=== PATIENT | female | born 1930 | race Asian ===

== ENCOUNTER 2016-12-25 18:32 | Inpatient (IN) | payer OTHER, MEDICARE ==
[~2016-12-25] VITALS: Ht 154.9 cm; Wt 47.2 kg
[~2016-12-25 18:32] MED LIST: ACET-9525 PO; AMYL-40 PO; POLY17PD65 PO; SIMV20TA1 PO
[2016-12-25 18:36] VITALS: BP 145/79
--- NOTE | 2016-12-25 19:14 | NUR ---
PT BIBA TO BED 8 AT THIS TIME.
--- NOTE | 2016-12-25 19:36 | NUR ---
86Y F BIBA C/O SUDDEN GENERALIZED WEAKNESS X 2HRS---NO FACIAL ASYMMETRY NOTED, TONGUE MIDLINE, EQUAL BUE PUSHES/PULLS. PT FAMILY IS AT BEDSIDE, STATES SHE HAS STAGE 4 COLON CANCER; TAKING XELODA FOR CHEMOTHERAPY X 3 WEEKS; PT HAS OSTOMY IN THE GI ; HX---STAGE 4 COLON CA, COLONSTOMY, HTN
--- NOTE | 2016-12-25 21:35 | NUR ---
Dr. Shea evaluating patient at bedside.
[2016-12-25] MEDS ORDERED: NACL 0.9% 1,000 ML IV ONE (21:40)
[2016-12-25 21:53] LABS: APPEARANCE,URINE CLEAR (CLEAR); BILIRUBIN,URINE NEGATIVE (NEGATIVE); BLOOD, URINE TRACE-L (NEGATIVE); COLOR,URINE YELLOW (YELLOW); LEUKOCYTE ESTERASE ,URINE NEGATIVE (NEGATIVE); NITRITE, URINE NEGATIVE (NEGATIVE); PROTEIN,URINE NEGATIVE (NEGATIVE); UGLUCOSE NEGATIVE (NEGATIVE); UROBILINOGEN,URINE 0.2 EU/dL (0.2 - 1)
[2016-12-25 21:57] LABS: BACTERIA,URINE RARE /HPF (None Seen); RBC,URINE 0-3 /HPF (0-5); WBC,URINE 0-3 /HPF (0-5)
[2016-12-25 21:58] LABS: SQUAMOUS EPITHELIAL CELL,UR 0-3 /LPF (0-3 (FEW))
[2016-12-25 22:05] LABS: BASOPHILS # (AUTO) 0.2 K/uL (0.00-0.22); HEMOGLOBIN 11.8 g/dL (12.0-16.0); MEAN CORPUSCULAR VOLUME 89 fL (80-94)
[2016-12-25 22:08] LABS: EOSINOPHILS # (AUTO) 0.3 K/uL (0-0.4); EOSINOPHILS % (AUTO) 1.7 % (0.0-4.0); HEMATOCRIT 36.2 % (36-48); LYMPHOCYTES % (AUTO) 11.1 % (20.5-51.1); MEAN CORPUSCULAR HEMOGLOBIN 29 pg (27-31); MEAN CORPUSCULAR HGB CONC 33 g/dL (33-37); MONOCYTES # (AUTO) 1.3 K/uL (0.8-1.0); NEUTROPHILS # (AUTO) 14.1 K/uL (1.8-7.7); NEUTROPHILS % (AUTO) 79.2 % (42.2-75.2); PLATELET COUNT (AUTO) 286 K/uL (140-450); RED BLOOD CELL COUNT(AUTO) 4.06 MIL/uL (4.20-5.40); RED CELL DISTRIBUTION WIDTH 22.2 % (11.6-13.7); WHITE BLOOD COUNT (AUTO) 17.9 K/uL (4.8-10.8)
[2016-12-25 22:22] LABS: ALANINE AMINOTRANSFERASE 23 U/L (14-59); ALBUMIN 1.6 g/dL (3.4-5.0); ALKALINE PHOSPHATASE 477 U/L (46-116); ANION GAP 11.9 (8-16); ASPARTATE AMINOTRANSFERASE 76 U/L (15-37); CALCIUM 8.4 mg/dL (8.5-10.1); CARBON DIOXIDE 22.6 mmol/L (21-32); CHLORIDE 104 mmol/L (98-107); CREATININE 1.1 mg/dL (0.6-1.3); GLUCOSE 154 mg/dL (74-106); POTASSIUM 4.5 mmol/L (3.5-5.1); SODIUM SERUM 134 mmol/L (136-145); TOTAL BILIRUBIN 0.8 mg/dL (0.0-1.0); TOTAL PROTEIN, SERUM 8.7 g/dL (6.4-8.2); UREA NITROGEN, BLOOD 12 mg/dL (7-18)
--- NOTE | 2016-12-25 22:47 | NUR ---
Patient will be admitted to care of [facility]. Admited to MS 110B. Will go to room 110B . Belongings list completed. Report to MILTON TRAMMELL .
[2016-12-25] MEDS ORDERED: CAPE500T1 PO (22:54)
[2016-12-25] MEDS: DEXT 5% / NACL 0.45% 1,000 ML IV SCH (23:29)
[2016-12-25] MEDS ORDERED: HYDROcodone/APAP 5/325 MG 1 TAB TAB PO PRN ×2 (23:30)
[2016-12-25] MEDS ORDERED: ONDANSETRON 4 MG/2 ML VIAL IVP PRN (23:30)
[2016-12-25] MEDS ORDERED: LORazepam 2 MG/ML VIAL IVP PRN (23:30)
--- NOTE | 2016-12-26 00:10 | NUR ---
RECEIVED PATIENT FROM ER VIA GURNEY, ACCOMPANIED BY GRANDDAUGHTER. IS AOX4, [place] SPEAKING, ABLE TO VERBALIZE FEELINGS. NO S/S OF DISTRESS. NO COMPLAINTS OF PAIN. WITH AN IV AT THE RIGHT HAND, PATENT AND INTACT. WITH A COLOSTOMY BAG, INTACT. SKIN IS INTACT. PATIENT NOTED WITH GENERALIZED WEAKNESS. ABDOMEN IS ROUND, TENDER UPON PALPATION. INITIAL ASSESSMENT DONE. ORIENTED PATIENT AND GRANDDAUGHTER TO THE UNIT, VERBALIZED UNDERSTANDING. WILL CONTINUE TO MONITOR. ALL NEEDS ATTENDED. CALL LIGHT WITHIN REACH. SAFETY CHECKS IN PLACE.
[2016-12-26 00:13] VITALS: BP 140/70
--- NOTE | 2016-12-26 01:15 | NUR ---
PLACED SEQUENTIALS ON THE PATIENT. STARTED IV FLUIDS, INTACT AND PATENT. WILL CONTINUE TO MONITOR.
--- NOTE | 2016-12-26 01:30 | NUR ---
PATIENT'S IV SITE IS NOTED TO HAVE SOME BACK FLOW. TRIED FLUSHING WITH NORMAL SALINE, BUT COULD NOT FLUSH. REINSERTED A 22 G ON THE LEFT WRIST. WILL CONTINUE TO MONITOR. ALL NEEDS ATTENDED. CALL LIGHT WITHIN REACH.
--- NOTE | 2016-12-26 03:20 | NUR ---
MADE ROUNDS, PATIENT ASLEEP. NO S/S OF DISTRESS. WILL CONTINUE TO MONITOR.
[2016-12-26 05:26] LABS: BASOPHILS # (AUTO) 0.2 K/uL (0.00-0.22); BASOPHILS % (AUTO) 1.5 % (0.0-2.0); EOSINOPHILS # (AUTO) 0.3 K/uL (0-0.4); EOSINOPHILS % (AUTO) 1.7 % (0.0-4.0); HEMOGLOBIN 10.8 g/dL (12.0-16.0); LYMPHOCYTES # (AUTO) 2.1 K/uL (2.5-16.5); LYMPHOCYTES % (AUTO) 13.2 % (20.5-51.1); MEAN CORPUSCULAR HEMOGLOBIN 29 pg (27-31); MEAN CORPUSCULAR HGB CONC 33 g/dL (33-37); MEAN CORPUSCULAR VOLUME 90 fL (80-94); MONOCYTES # (AUTO) 0.9 K/uL (0.8-1.0); MONOCYTES % (AUTO) 5.6 % (1.7-9.3); NEUTROPHILS # (AUTO) 12.7 K/uL (1.8-7.7); PLATELET COUNT (AUTO) 258 K/uL (140-450); RED BLOOD CELL COUNT(AUTO) 3.69 MIL/uL (4.20-5.40); RED CELL DISTRIBUTION WIDTH 22.8 % (11.6-13.7)
[2016-12-26 06:00] LABS: ALANINE AMINOTRANSFERASE 19 U/L (14-59); ALBUMIN 1.5 g/dL (3.4-5.0); ALKALINE PHOSPHATASE 437 U/L (46-116); ASPARTATE AMINOTRANSFERASE 69 U/L (15-37); CALCIUM 8.4 mg/dL (8.5-10.1); CARBON DIOXIDE 20.7 mmol/L (21-32); CHLORIDE 105 mmol/L (98-107); CREATININE 0.7 mg/dL (0.6-1.3); GLUCOSE 164 mg/dL (74-106); MAGNESIUM 1.9 mg/dL (1.8-2.4); POTASSIUM 3.7 mmol/L (3.5-5.1); SODIUM SERUM 135 mmol/L (136-145); TOTAL BILIRUBIN 0.7 mg/dL (0.0-1.0); TOTAL PROTEIN, SERUM 8.3 g/dL (6.4-8.2); UREA NITROGEN, BLOOD 10 mg/dL (7-18)
--- NOTE | 2016-12-26 06:34 | NUR ---
PATIENT AWAKE. NO S/S OF DISTRESS. NO COMPLAINTS OF PAIN. WILL CONTINUE TO MONITOR. ALL NEEDS ATTENDED. CALL LIGHT WITHIN REACH. SAFETY CHECKS IN PLACE.
[2016-12-26 06:38] LABS: WHITE BLOOD COUNT (AUTO) 16.2 K/uL (4.8-10.8)
--- NOTE | 2016-12-26 07:15 | NUR ---
ENDORSED TO AM SHIFT NURSE FOR CONTINUITY OF CARE, IN STABLE CONDITION.
--- NOTE | 2016-12-26 07:16 | NUR ---
RECEIVED REPORT FROM THE HANGERSMITH NURSE AT BEDSIDE FOR CONTINUITY OF CARE. PT IS AWAKE. JUSTICE COURT JUDGE WITH HER W/ A BEDPAN. WILL COME BACK TO ASSESS PT.
--- NOTE | 2016-12-26 07:45 | NUR ---
PT IS AWAKE AND ORIENTED, CITIZEN OF [place] SPEAKING. INTRODUCED MYSELF AND UPDATED THE BOARD. PT IS EATING BREAKFAST. V/S IS WNL. SKIN INTACT, LOOSE. PT HAS A COLOSTOMY BAG. IV ON R WRIST 22G D5 1/2 NS INFUSING AT 75ML. DENIES PAIN. NO COMPLAINTS AT THIS TIME. WILL CONTINUE TO MONITOR PT.
[2016-12-26 08:00] VITALS: BP 146/73
[2016-12-26] MEDS: ENOXAPARIN 30 MG/0.3 ML SYR SUBQ SCH (08:54)
--- NOTE | 2016-12-26 08:56 | NUR ---
ADMINISTERED MORNING MEDS. PT TOLERATED WELL. WILL CONTINUE TO MONITOR PT. PT'S FAMILY AT BEDSIDE.
--- NOTE | 2016-12-26 09:37 | NUR ---
CM NOTE INITIAL REVIEW FAXED TO [facility] [phone] PH CASTRO [phone] OCTOBER [phone]
--- NOTE | 2016-12-26 11:18 | NUR ---
PATIENT HAS BEEN SCREENED AND CATEGORIZED HIGH NUTRITION RISK. PATIENT WILL BE SEEN WITHIN 1-2 DAYS OF ADMISSION. 12/26/16-12/27/[address]
--- NOTE | 2016-12-26 11:20 | NUR ---
IV SITE LEAKING. WILL NEED TO RESTART IV. WILL ASSESS.
--- NOTE | 2016-12-26 12:50 | NUR ---
PT NEEDED TO GO TO THE BATHROOM. PLACED BED BOJORQUEZ. PT HAD A LIQUIDY BM AND URINATED. EMPTIED THE COLOSTOMY BAG. PT TOLERATED WELL.
--- NOTE | 2016-12-26 14:10 | NUR ---
STARTED A NEW IV ON R WRIST 22G. PT TOLERATED WELL. D/C'D THE L HAND IV. NO BLEEDING NOTED. CANNULA INTACT.
--- NOTE | 2016-12-26 14:36 | NUR ---
12/26/16 RD INITIAL ASSESSMENT COMPLETED PLEASE REFER TO NUTRITION ASSESSMENT UNDER CARE ACTIVITY FOR ESTIMATED NUTRITIONAL NEEDS. 1. CONTINUE MECHANICAL SOFT DIET 2. CONSIDER HEALTHSHAKE TID 3. RD TO FOLLOW UP WITHIN 2-3 DAYS; HIGH RISK RENEE FLEMING RD
[2016-12-26] MEDS: DEXT 5% / NACL 0.45% 1,000 ML IV SCH (15:01)
[2016-12-26 15:05] LABS: ALANINE AMINOTRANSFERASE 21 U/L (14-59); ALBUMIN 1.5 g/dL (3.4-5.0); ALKALINE PHOSPHATASE 447 U/L (46-116); ANION GAP 11.4 (8-16); ASPARTATE AMINOTRANSFERASE 71 U/L (15-37); CALCIUM 8.6 mg/dL (8.5-10.1); CARBON DIOXIDE 22.6 mmol/L (21-32); CHLORIDE 105 mmol/L (98-107); CREATININE 0.7 mg/dL (0.6-1.3); GLUCOSE 115 mg/dL (74-106); SODIUM SERUM 135 mmol/L (136-145); TOTAL BILIRUBIN 0.7 mg/dL (0.0-1.0); TOTAL PROTEIN, SERUM 8.7 g/dL (6.4-8.2); UREA NITROGEN, BLOOD 9 mg/dL (7-18)
[2016-12-26 16:00] VITALS: BP 146/76
--- NOTE | 2016-12-26 17:05 | NUR ---
PT SLEEPING. NO SIGNS OF DISTRESS. FAMILY MEMBER AT BEDSIDE. WILL CONTINUE TO MONITOR PT.
--- NOTE | 2016-12-26 19:10 | NUR ---
ENDORSED PT TO THE QUALITY CONTROL OPERATOR NURSE AT BEDSIDE FOR CONTINUITY OF CARE. PT IS IN STABLE CONDITION. FAMILY AT BEDSIDE.
--- NOTE | 2016-12-26 19:11 | NUR ---
RECEIVED REPORT FROM AM NURSE. PT IS AOX4, [place]AK[place] SPEAKING, ABLE TO MAKE NEEDS KNOWN. NO S/S OF DISTRESS. NO COMPLAINTS OF PAIN AT THIS TIME. WITH FAMILY AT BEDSIDE. WITH AN IV TO THE RIGHT WRIST 22 G, INTACT AND PATENT. SKIN IS INTACT, BUT HAS A COLOSTOMY BAG. INITIAL ASSESSMENT DONE. REORIENTED PATIENT AND FAMILY TO THE UNIT, VERBALIZED UNDERSTANDING. WILL CONTINUE TO MONITOR. CALL LIGHT WITHIN REACH. SAFETY CHECKS IN PLACE.
--- NOTE | 2016-12-26 21:57 | NUR ---
MADE ROUNDS, PATIENT ASLEEP. NO S/S OF DISTRESS. NO COMPLAINTS OF PAIN. WILL CONTINUE TO MONITOR. CALL LIGHT WITHIN REACH. SAFETY CHECKS IN PLACE.
[2016-12-27] VITALS: BP 144/68
--- NOTE | 2016-12-27 | NUR ---
VITAL SIGNS STABLE, NO S/S OF DISTRESS. NO COMPLAINTS OF PAIN. WILL CONTINUE TO MONITOR. ALL NEEDS ATTENDED. CALL LIGHT WITHIN REACH. SAFETY CHECKS IN PLACE.
--- NOTE | 2016-12-27 02:00 | NUR ---
MADE ROUNDS, PATIENT ASLEEP. NO S/S OF DISTRESS. WILL CONTINUE TO MONITOR.
[2016-12-27] MEDS: DEXT 5% / NACL 0.45% 1,000 ML IV SCH ×2 (02:13→15:31)
--- NOTE | 2016-12-27 04:15 | NUR ---
MADE ROUNDS, PATIENT ASLEEP, NO S/S OF DISTRESS. WILL CONTINUE TO MONITOR.
[2016-12-27 06:49] LABS: HEMATOCRIT 33.8 % (36-48); HEMOGLOBIN 11.1 g/dL (12.0-16.0); MEAN CORPUSCULAR HEMOGLOBIN 29 pg (27-31); MEAN CORPUSCULAR HGB CONC 33 g/dL (33-37); MEAN CORPUSCULAR VOLUME 90 fL (80-94); PLATELET COUNT (AUTO) 223 K/uL (140-450); RED BLOOD CELL COUNT(AUTO) 3.77 MIL/uL (4.20-5.40); RED CELL DISTRIBUTION WIDTH 22.2 % (11.6-13.7)
--- NOTE | 2016-12-27 07:21 | NUR ---
RECEIVED REPORT FROM NIGHT NURSE, PT IS AAOX4 [place]YR[place] SPEAKER, ON ROOM AIR, IV TO RIGHT WRIST 22G INFUSING WELL, COLOSTOMY BAG IN PLACE, SCD'S NOTED, ALL SAFETY PRECAUTIONS MET, INITIAL ASSESSMENT COMPLETED, REVIEWED PLAN OF CARE WITH PT, PT NODS HEAD TO VERBALIZED UNDERSTANDING. CALL LIGHT WITHIN REACH. WILL CONTINUE TO MONITOR.
--- NOTE | 2016-12-27 07:21 | NUR ---
ENDORSED TO AM SHIFT NURSE FOR CONTINUITY OF CARE, IN STABLE CONDITION.
--- NOTE | 2016-12-27 07:25 | NUR ---
WAS NOTIFIED BY THE VIBRATORY PILE DRIVER THAT THE PATIENT HAD BLOOD IN THE URINE. WENT TO CHECK MYSELF. TOLD AM SHIFT NURSE AND DR. CASANOVA WAS MADE KNOWN. MADE AN ORDER TO SEND THE URINE FOR URINALYSIS. NOTED.
[2016-12-27 07:27] LABS: BAND % (MANUAL) 3 % (0-8); BASOPHILS % (MANUAL) 1 % (0-2); EOSINOPHILS % (MANUAL) 3 % (0-4); LYMPHOCYTES % (MANUAL) 15 % (20-46); MONOCYTES % (MANUAL) 10 % (5-12); NEUTROPHILS % (MANUAL) 68 (43-65); PLATELET ESTIMATE ADEQUATE
[2016-12-27 07:28] LABS: ANISOCYTOSIS 1+; TARGET CELLS 1+
[2016-12-27 07:29] LABS: POLYCHROMASIA 1+
[2016-12-27 08:00] VITALS: BP 124/66
[2016-12-27] MEDS: ENOXAPARIN 30 MG/0.3 ML SYR SUBQ SCH (08:49)
--- NOTE | 2016-12-27 08:49 | NUR ---
DUE MEDICATION GIVEN, NO S/S OF DISTRESS NOTED, DAUGHTER THONG AT BED SIDE, ALL SAFETY PRECAOUTIONS MET, CALL LIGHT WITHIN REACH. WILL CONTINUE TO MONITOR.
--- NOTE | 2016-12-27 11:04 | NUR ---
COLOSTOMY BAG CHANGED, PT TOLERATED WELL, NO S/S OF DISTRESS NOTED, ALL NEEDS MET, ALL SAFETY PRECAUTIONS MET, WILL CONTINUE TO MONITOR. SON AT BEDSIDE.
[2016-12-27 11:49] LABS: APPEARANCE,URINE CLEAR (CLEAR); BILIRUBIN,URINE NEGATIVE (NEGATIVE); BLOOD, URINE TRACE-I (NEGATIVE); COLOR,URINE YELLOW (YELLOW); LEUKOCYTE ESTERASE ,URINE NEGATIVE (NEGATIVE); NITRITE, URINE NEGATIVE (NEGATIVE); PROTEIN,URINE TRACE (NEGATIVE); UGLUCOSE NEGATIVE (NEGATIVE); UROBILINOGEN,URINE 0.2 EU/dL (0.2 - 1)
[2016-12-27 12:11] LABS: BACTERIA,URINE 0-2 (RARE) /HPF (None Seen); RBC,URINE 0-5 (RARE) /HPF (0-5); SQUAMOUS EPITHELIAL CELL,UR 0-3 (FEW) /LPF (0-3 (FEW)); WBC,URINE 0-5 (RARE) /HPF (0-5)
--- NOTE | 2016-12-27 13:28 | NUR ---
CHECKED IN ON PT, PT CURRENTLY SLEEPING AWAKENS TO NAME, SON AT BEDSIDE. ALL SAFETY PRECAUTIONS MET. CALL LIGHT WITHIN REACH. WILL CONTINUE TO MONITOR.
--- NOTE | 2016-12-27 15:26 | NUR ---
PT CURRENTLY RESTING IN BED, ASSISTED PT TO BEDPAN, NO S/S OF DISTRESS NOTED. ALL NEEDS MET. CALL LIGHT WITHIN REACH, WILL CONTINUE TO MONITOR.
[2016-12-27 16:00] VITALS: BP 143/80
--- NOTE | 2016-12-27 17:45 | NUR ---
PT CURRENTLY SLEEPING AWAKENS TO NAME, NO S/S OF DISTRESS NOTED, SON AT BEDSIDE. CALL LIGHT WITHIN REACH. WILL CONTINUE TO MONITOR.
--- NOTE | 2016-12-27 19:18 | NUR ---
ENDORSED PLAN OF CARE TO NIGHT NURSE, PT IN STABLE CONDITION, NO S/S OF DISTRESS NOTED, FAMILY AT BEDSIDE.
--- NOTE | 2016-12-27 19:20 | NUR ---
RECEIVED PT FROM AM NURSE, PT IN STABLE CONDITION, A&0 X4. FAMILY AT BEDSIDE. IV ON RIGHT WRIST 22G INFUSING FLUIDS AT 75ML/HR . ON ROOM AIR, COLOSTOMY BAG IN PLACE. PLAN OF CARE DISCUSSED WITH PATIENT AND FAMILY, BOTH VERBALIZED UNDERSTANDING. BED ON LOW POSITION, SAFETY PRECAUTIONS IN PLACE. CALL LIGHT WITHIN REACH WILL CONTINUE TO MONITOR.
--- NOTE | 2016-12-27 21:30 | NUR ---
ASSISTED PT WITH BEDPAN, PT IS STABLE WITH DAUGHTER AT THE BEDSIDE.
[2016-12-27 23:50] VITALS: BP 151/76
--- NOTE | 2016-12-27 23:50 | NUR ---
MADE ROUNDS. ASSISTED PT WITH BED BOJORQUEZ.
--- NOTE | 2016-12-28 01:40 | NUR ---
MADE ROUNDS. PT IS SLEEPING, NO S/S OF DISCOMFORT NOTED. WILL CONTINUE TO MONITOR
[2016-12-28] MEDS: DEXT 5% / NACL 0.45% 1,000 ML IV SCH ×3 (04:49→19:05)
--- NOTE | 2016-12-28 06:40 | NUR ---
MADE ROUNDS. PT IS AWAKE, ASSISTED PT WITH BEDSIDE COMMODE. COLOSTOMY BAG WAS EMPTIED.
[2016-12-28 07:17] LABS: HEMATOCRIT 34.8 % (36-48); HEMOGLOBIN 11.4 g/dL (12.0-16.0); MEAN CORPUSCULAR HEMOGLOBIN 29 pg (27-31); MEAN CORPUSCULAR HGB CONC 33 g/dL (33-37); MEAN CORPUSCULAR VOLUME 89 fL (80-94); PLATELET COUNT (AUTO) 212 K/uL (140-450); RED CELL DISTRIBUTION WIDTH 22.1 % (11.6-13.7); WHITE BLOOD COUNT (AUTO) 18.7 K/uL (4.8-10.8)
[2016-12-28] MEDS ORDERED: CEPH250C16 PO (07:17)
--- NOTE | 2016-12-28 07:41 | NUR ---
RECEIVED REPORT FROM NIGHT NURSE, PT IS AAOX4, ON ROOM AIR, IV TO R WRIST 22 G INFUSING WELL, COLOSTOMY BAG DRY AND INTACT, INITIAL ASSESSMENT COMPLETED, REVIEWED PLAN OF CARE WITH PT, ALL SAFETY PRECAUTIONS MET, CALL LIGHT WITHIN REACH, WILL CONTINUE TO MONITOR.
--- NOTE | 2016-12-28 07:41 | NUR ---
ENDORSED PT TO AM NURSE FOR CONTINUITY OF CARE, PT IN STABLE CONDITION.
[2016-12-28 07:59] LABS: ANISOCYTOSIS 1+; BAND % (MANUAL) 0 % (0-8); BASOPHILS % (MANUAL) 1 % (0-2); EOSINOPHILS % (MANUAL) 1 % (0-4); LYMPHOCYTES % (MANUAL) 8 % (20-46); MONOCYTES % (MANUAL) 7 % (5-12); NEUTROPHILS % (MANUAL) 83 (43-65); PLATELET ESTIMATE ADEQUATE
[2016-12-28] MEDS: ENOXAPARIN 30 MG/0.3 ML SYR SUBQ SCH (09:06)
--- NOTE | 2016-12-28 09:08 | NUR ---
DUE MEDICATION GIVEN, PT TOLERATED WELL, ALL SAFETY PRECAUTIONS MET, CALL LIGHT WITHIN REACH, WILL CONTINUE TO ,MONITOR.
[2016-12-28 09:45] VITALS: BP 144/78
--- NOTE | 2016-12-28 12:33 | NUR ---
CHECKED IN ON PT, PT RESTING COMFORTABLY IN BED WITH FAMILY AT BEDSIDE, DAUGHTER IS FEEDING PT, ALL SAFETY PRECAUTIONS MET. CALL LIGHT WITHIN REACH WILL CONTINUE TO MONITOR.
--- NOTE | 2016-12-28 15:40 | NUR ---
DUE MEDICATION GIVEN, PT TOLERATED WELL, ALL SAFETY PRECAUTIONS MET, CALL LIGHT WITHIN REACH, WILL CONTINUE TO MONITOR.
[2016-12-28 16:00] VITALS: BP 107/68
--- NOTE | 2016-12-28 17:31 | NUR ---
CHECKED IN ON PT, PT RESTING COMFORTABLY IN BED, ALL NEEDS MET, ALL SAFETY PRECAUTIONS IN PLACE, CALL LIGHT WITHIN REACH, WILL CONTINUE TO MONITOR.
--- NOTE | 2016-12-28 19:31 | NUR ---
ENDORSED PLAN OF CARE TO NIGHT NURSE, PT IN STABLE CONDITION, NO S/S OF DISTRESS NOTED CALL LIGHT WITHIN REACH, SAFETY PRECAUTIONS MET.
--- NOTE | 2016-12-28 19:32 | NUR ---
PATIENT IS CURRENTLY RESTING IN BED SPEAKS SAMI AND FAMILY AT BEDSIDE WITH THE PATIENT.PATIENT CONTINUES TO BE ASSISTED TO USE THE BEDPAN NEEDED.PATIENT HAS NO COMPLAINS OF PAIN NO FACIAL GRIMACING NOTED AT THIS TIME.COLOSTOMY BAG IN PLACE SOFT BROWNISH STOOLS NOTED TO COLOSTOMY AT THIS TIME.FALL AND SAFETY PRECAUTIONS IMPLEMENTED.VITALS SIGNS TAKEN CURRENTLY WITHIN NORMAL LIMITS.CALL LIGHT WITHIN REACH WILL CONTINUE TO MONITOR.
[2016-12-28 20:00] VITALS: BP 138/65
--- NOTE | 2016-12-28 20:00 | NUR ---
MANAGER MONEY LIBERTY EMPTIED THE COLOSTOMY BAG AND CLEANED THE PATIENT CONTINUES TO GIVE PATIENT THE BEDPAN NEEDED AND MANAGER MONEY AND MYSELF CONTINUE TO ATTEND TO PATIENT AND FAMILY NEEDS.CALL LIGHT WITHIN REACH.
--- NOTE | 2016-12-28 21:05 | NUR ---
PATIENT SLEEPING AT THIS TIME.NEEDS MET FREQUENT MONITORING DONE.
--- NOTE | 2016-12-28 22:03 | NUR ---
PATIENT SLEEPING COMFORTABLY IN BED WILL CONTINUE TO MONITOR.FAMILY WENT HOME.
[2016-12-29] VITALS: BP 145/69
--- NOTE | 2016-12-29 00:16 | NUR ---
Patient's Plan of Care was discussed and reviewed with OUTREACH COORDINATOR: PENELOPE ORTIZ
[2016-12-29] MEDS: ACETAMINOPHEN 325 MG TAB PO PRN ×2 (00:59→23:40)
--- NOTE | 2016-12-29 00:59 | NUR ---
PATIENT MEDICATED WITH TYLENOL TEMP CONTINUES TO BE 100.4 F AND CONTINUES TO HAVE COOLING MEASURES.WILL CONTINUE TO MONITOR FLUIDS OFFERED.
--- NOTE | 2016-12-29 02:00 | NUR ---
PATIENT IS CURRENTLY SLEEPING IN BED PATIENT IN NO DISTRESS WILL CONTINUE TO MONITOR.
--- NOTE | 2016-12-29 04:25 | NUR ---
PATIENT STABLE TEMP CHECKED AND RECORDED PATIENT IS AFEBRILE.NEEDS MET.PATIENT KEPT CLEAN AND DRY.WILL CONTINUE TO MONITOR CALL LIGHT WITHIN REACH.
--- NOTE | 2016-12-29 07:09 | NUR ---
PATIENT STABLE REPORT ENDORSED TO JP BOUCHER AT BEDSIDE HE WILL RESUME CARE OF THE PATIENT.
--- NOTE | 2016-12-29 07:10 | NUR ---
ASSUMED CONTINUITY OF CARE. NO SIGNS AND SYMPTOMS OF ACUTE DISTRESS NOTED. INITIAL ASSESSMENT DONE. HOB ELEVATED. KEEP COMFORTABLE ON BED. PT. DAUGHTER -YENY ON BEDSIDE. EXPLAINED DIAGNOSIS, PLAN OF CARE, PAIN MANAGEMENT TEACHING, USE OF CALL LIGHT/BED/TV/BATHROOM. VERBALIZED UNDERSTANDING. FALL PRECAUTION APPLIED. CALL LIGHT WITHIN REACH.
[2016-12-29] MEDS: DEXT 5% / NACL 0.45% 1,000 ML IV SCH ×2 (07:29→20:49)
[2016-12-29 08:00] VITALS: BP 130/63
--- NOTE | 2016-12-29 08:00 | NUR ---
Patient's Plan of Care was discussed and reviewed with PARTS TECHNICIAN: MICAH MACDONALD
[2016-12-29] MEDS: ENOXAPARIN 30 MG/0.3 ML SYR SUBQ SCH (09:24)
--- NOTE | 2016-12-29 10:12 | NUR ---
12/29/16 RD FOLLOW-UP ASSESSMENT COMPLETED PLEASE REFER TO NUTRITION ASSESSMENT UNDER CARE ACTIVITY FOR ESTIMATED NUTRITIONAL NEEDS. 1. CONTINUE REGULAR, MECHANICAL SOFT DIET + HEALTH SHAKE TID 2. RD TO FOLLOW-UP 3-5 DAYS, MODERATE RISK RENEE FLEMING, HYUN
[2016-12-29 12:00] VITALS: BP 136/68
--- NOTE | 2016-12-29 12:00 | NUR ---
DR. CASANOVA CAME, SEEN PT. AND SPOKE TO PT. DAUGHTER. ALSO INFORMED DR. CASANOVA OF LATEST VS AT 1200.
[2016-12-29 12:36] LABS: HEMATOCRIT 34.7 % (36-48); HEMOGLOBIN 11.3 g/dL (12.0-16.0); MEAN CORPUSCULAR HEMOGLOBIN 30 pg (27-31); MEAN CORPUSCULAR HGB CONC 33 g/dL (33-37); MEAN CORPUSCULAR VOLUME 90 fL (80-94); PLATELET COUNT (AUTO) 200 K/uL (140-450); RED BLOOD CELL COUNT(AUTO) 3.84 MIL/uL (4.20-5.40); RED CELL DISTRIBUTION WIDTH 21.6 % (11.6-13.7); WHITE BLOOD COUNT (AUTO) 25.9 K/uL (4.8-10.8)
[2016-12-29 13:19] LABS: BAND % (MANUAL) 8 % (0-8); LYMPHOCYTES % (MANUAL) 4 % (20-46); MONOCYTES % (MANUAL) 5 % (5-12); NEUTROPHILS % (MANUAL) 83 (43-65)
[2016-12-29] MEDS ORDERED: VANCOMYCIN PER PHARMACY MC PRN (13:30)
[2016-12-29 15:34] LABS: ANION GAP 17.7 (8-16); CALCIUM 7.8 mg/dL (8.5-10.1); CARBON DIOXIDE 18.1 mmol/L (21-32); CHLORIDE 103 mmol/L (98-107); CREATININE 0.8 mg/dL (0.6-1.3); GLUCOSE 263 mg/dL (74-106); POTASSIUM 3.8 mmol/L (3.5-5.1); SODIUM SERUM 135 mmol/L (136-145); UREA NITROGEN, BLOOD 9 mg/dL (7-18)
[2016-12-29] MEDS: VANCOMYCIN 750 MG in DEXTROSE 5% 250 ML IV SCH (17:05)
--- NOTE | 2016-12-29 17:09 | NUR ---
SLEEPING IN COMFORTABLE POSITION. NO DIFFICULTY BREATHING OBSERVED. PT. DAUGHTER ON BED SIDE. CALL LIGHT WITHIN REACH.
--- NOTE | 2016-12-29 19:21 | NUR ---
BEDSIDE REPORT GIVEN TO STACIA HAN. IVF INFUSING WELL. IN STABLE CONDITION.
--- NOTE | 2016-12-29 19:30 | NUR ---
RECEIVED REPORT FROM AM NURSE. PT'S SON AT BEDSIDE. PT RESTING IN BED, ABLE TO VERBALIZE NEEDS. PT DENIES S/S OF ACUTE DISTRESS. PT C/O ABD PAIN, PAIN TOLERABLE, DENIES PAIN MEDICATION. COLOSTOMY NOTED, EMPTIED 100ML LOOSE STOOL WITH SOME SOFT SOLID STOOL. IV ACCESS ASYMPTOMATIC, PATENT AND INTACT, IVF INFUSING WELL. DISCUSSED AND REVIEWED PLAN OF CARE WITH PT. PT AND PT'S SON VERBALIZED UNDERSTANDING. WILL CONTINUE WITH CONSTANT REINFORCEMENT. ASSISTED PT TO BEDPAN, 50ML CLEAR YELLOW URINE NOTED. PT HAS BEEN HAVING URINARY FREQUENCY. ALL NEEDS MET. SAFETY MEASURES ENSURED. CALL LIGHT WITHIN REACH. WILL CONTINUE TO MONITOR.
[2016-12-29 20:00] VITALS: BP 141/71
--- NOTE | 2016-12-29 21:30 | NUR ---
PT ASSISTED TO BEDPAN BY CHILD PROTECTIVE INVESTIGATOR, PT HAVING URINARY FREQUENCY. ALL NEEDS MET. SAFETY MEASURES ENSURED. CALL LIGHT WITHIN REACH. WILL CONTINUE TO MONITOR.
--- NOTE | 2016-12-29 23:40 | NUR ---
PT TEMP 102.5, COOLING MEASURES MAINTAINED, TYLENOL PO PRN ADMINISTERED WITH EDUCATION ORDERED. PT TOLERATED WELL. WILL RECHECK TEMP.
[2016-12-30] VITALS: BP 148/71
--- NOTE | 2016-12-30 00:30 | NUR ---
PT TEMP RECHECKED, 100.2; COOLING MEASURES MAINTAINED. WILL CONTINUE TO MONITOR. ALL NEEDS MET AT THIS TIME. SAFETY MEASURES ENSURED. CALL LIGHT WITHIN REACH.
--- NOTE | 2016-12-30 03:00 | NUR ---
TEMP RECHECKED, 98.0; CONDITION STABLE. PT RESTING WELL. ASSISTED PT TO BEDPAN, 150ML CLEAR YELLOW URINE. PT TOLERATED WELL. COLOSTOMY BAG EMPTIED, SMALL SOFT FORMED STOOL NOTED. ALL NEEDS MET. SAFETY MEASURES ENSURED. CALL LIGHT WITHIN REACH.
--- NOTE | 2016-12-30 06:00 | NUR ---
ASSISTED PT TO BEDPAN. PT HAD 150ML DARK RED LIQUID STOOL FROM ANUS. PT CLEANED, AND REPOSITIONED. ALL NEEDS MET. SAFETY MEASURES ENSURED. CALL LIGHT WITHIN REACH. WILL CONTINUE TO MONITOR.
--- NOTE | 2016-12-30 07:14 | NUR ---
ENDORSED PLAN OF CARE TO AM NURSE. CONDITION STABLE.
[2016-12-30 08:00] VITALS: BP 129/68
--- NOTE | 2016-12-30 08:18 | NUR ---
CM NOTE CONCURRENT REVIEW FAXED TO [facility] [phone] PH CASTRO [phone] OCTOBER [phone]
[2016-12-30] MEDS: ENOXAPARIN 30 MG/0.3 ML SYR SUBQ SCH (08:30)
--- NOTE | 2016-12-30 10:42 | NUR ---
DR. CASANOVA CAME, CHECKED PT. CHART, AND SEEN PT..
[2016-12-30 11:07] LABS: HEMATOCRIT 33.2 % (36-48); HEMOGLOBIN 10.7 g/dL (12.0-16.0); MEAN CORPUSCULAR HEMOGLOBIN 29 pg (27-31); MEAN CORPUSCULAR HGB CONC 32 g/dL (33-37); MEAN CORPUSCULAR VOLUME 91 fL (80-94); PLATELET COUNT (AUTO) 168 K/uL (140-450); RED BLOOD CELL COUNT(AUTO) 3.65 MIL/uL (4.20-5.40); RED CELL DISTRIBUTION WIDTH 20.8 % (11.6-13.7); WHITE BLOOD COUNT (AUTO) 23.7 K/uL (4.8-10.8)
[2016-12-30 12:00] VITALS: BP 144/74
[2016-12-30 12:43] LABS: BAND % (MANUAL) 8 % (0-8); LYMPHOCYTES % (MANUAL) 11 % (20-46); MONOCYTES % (MANUAL) 3 % (5-12); NEUTROPHILS % (MANUAL) 78 (43-65)
--- NOTE | 2016-12-30 13:47 | NUR ---
PAGED DR. CASANOVA REGARDING WBC RESULTS. LEFT CALL BACK NUMBER.
--- NOTE | 2016-12-30 13:50 | NUR ---
DR. CASANOVA CALLED BACK, INFORMED OF PT. WBC 23.7. GOT TELEPHONE ORDER THAT PT. CAN BE D/C HOME. INFORMED CHARGE NURSE ILIR HAN.
[2016-12-30] MEDS: DEXT 5% / NACL 0.45% 1,000 ML IV SCH (15:37)
--- NOTE | 2016-12-30 16:00 | NUR ---
EXPLAINED TO PT. AND PT. JOEY MASON ABOUT MD D/C ORDER, D/C INSTRUCTIONS AND TEACHING, DISEASE MANAGEMENT TEACHING, COLOSTOMY CARE, MD FOLLOW-UP, DIET, PAIN MANAGEMENT TEACHING. VERBALIZED UNDERSTANDING.
[2016-12-30] MEDS: VANCOMYCIN 750 MG in DEXTROSE 5% 250 ML IV SCH (16:14)
--- NOTE | 2016-12-30 17:25 | NUR ---
D/C VIA WHEELCHAIR WITH ASSISTANCE FROM CINTHIA TEJADA, ACCOMPANIED BY PT. JOEY MASON. AWAKE, ALERT, AND ORIENTED X3. SPEECH CLEAR. NO C/O PAIN. NO SOB, NOTED. IN STABLE CONDITION. INFORMED CHARGE NURSE ILIR HAN.
== END 2016-12-30 17:25 | disposition home or self-care (01) | DRG 720 ==
LOC: MED 18:32 → MTU 23:36
PROVIDERS: ADMIT Hospitalist; ATTEND Hospitalist
DX: A41.9 Sepsis, unspecified organism (principal); G93.40 Encephalopathy, unspecified; E44.0 Moderate protein-calorie malnutrition; C18.9 Malignant neoplasm of colon, unspecified; E86.0 Dehydration; N39.0 Urinary tract infection, site not specified; E78.5 Hyperlipidemia, unspecified; Z68.1 Body mass index [BMI] 19.9 or less, adult; D63.8 Anemia in other chronic diseases classified elsewhere; M19.90 Unspecified osteoarthritis, unspecified site; T45.1X5A Adverse effect of antineoplastic and immunosuppressive drugs, initial encounter; Z93.3 Colostomy status
CPT/HCPCS: 36415; 71020; 80048; 80053; 81001; 82948; 83735; 85025; 87040; 87081; 87086; 93005; 99285; J0696; J1650; J3370; J7030; J7060